=== PATIENT | male | born 2000 | race Caucasian/White ===

== ENCOUNTER 2021-10-17 16:13 | Emergency (ER) | payer OTHER ==
[~2021-10-17] VITALS: Ht 185.4 cm; Wt 84.1 kg
[2021-10-17] MEDS ORDERED: morphine 4 MG/ML inj SYRINge IV ONE ×2 (17:55→20:05)
[2021-10-17] MEDS ORDERED: normal saline 1000ml 1,000 ML IV ONE (17:55)
[2021-10-17] MEDS ORDERED: propofol 10mg/ml 20ml vial IV ONE (17:55)
[2021-10-17 18:24] LABS: BASOPHILS % (AUTO) 0.3 % (0-1); EOSINOPHILS % (AUTO) 0.1 % (0-6); HEMATOCRIT 40.5 % (42.0-52.0); HEMOGLOBIN 13.7 g/dl (14.0-17.9); LYMPHOCYTES # (AUTO) 1.7 X10'3 (1.1-4.8); LYMPHOCYTES % (AUTO) 12.9 % (21-51); MEAN CORPUSCULAR HEMOGLOBIN 28.1 PG (27.0-31.0); MEAN CORPUSCULAR HGB CONC 33.8 g/dL (33.0-36.5); MEAN PLATELET VOLUME 8.2 FL (7.4-10.4); MONOCYTES # (AUTO) 0.6 X10'3 (0-0.9); MONOCYTES % (AUTO) 4.6 % (2-12); NEUTROPHILS # (AUTO) 10.8 X10'3 (1.8-7.7); NEUTROPHILS % (AUTO) 82.1 % (42-75); PLATELET COUNT 193 X10'3 (140-440); RED BLOOD COUNT 4.88 X10'6 (4.70-6.10); RED CELL DISTRIBUTION WIDTH 13.4 % (11.5-14.5); WHITE BLOOD COUNT 13.1 X10'3 (4.5-11.0)
[2021-10-17 18:29] LABS: ALANINE AMINOTRANSFERASE 22 U/L (12-78); ALBUMIN 4.7 G/DL (3.4-5.0); ALBUMIN/GLOBULIN RATIO 1.8 (1.1-1.5); ALKALINE PHOSPHATASE 72 IU/L (46-116); ANION GAP 11 (8-16); ASPARTATE AMINO TRANSFERASE 26 U/L (10-37); BILIRUBIN,TOTAL 0.7 MG/DL (0.1-1.0); BLOOD UREA NITROGEN 26 MG/DL (7-18); CALCIUM 8.7 MG/DL (8.5-10.1); CHLORIDE 105 MMOL/L (99-107); CREATININE 0.84 MG/DL (0.60-1.10); GLUCOSE 106 MG/DL (70-104); POTASSIUM 3.8 MMOL/L (3.5-5.1); SODIUM 140 MMOL/L (135-145); TOTAL CARBON DIOXIDE 23.6 MMOL/L (24-32); TOTAL PROTEIN 7.3 G/DL (6.4-8.2); eGFR > 90 ML/MIN
--- NOTE | 2021-10-17 19:58 | NUR ---
Diprivan IV doses given during Moderated Sedation: @[address] Dick @[address] Dick @[address] Dick @[address] Dick.
[2021-10-17] MEDS ORDERED: NAPR-56 PO (20:16)
[2021-10-17] MEDS ORDERED: HYDR-3965 PO (20:16)
[2021-10-17 20:32] VITALS: BP 138/89
--- NOTE | 2021-10-17 20:39 | NUR ---
Pt is awake and alert. Denies pain.
== END 2021-10-17 21:39 | disposition home or self-care (01) ==
LOC: ER 16:14
DX: S53.025A Posterior dislocation of left radial head, initial encounter (principal); S62.636A Displaced fracture of distal phalanx of right little finger, initial encounter for closed fracture; F12.90 Cannabis use, unspecified, uncomplicated; Z72.89 Other problems related to lifestyle; Z79.899 Other long term (current) drug therapy; W19.XXXA Unspecified fall, initial encounter; Y93.89 Activity, other specified; Y92.89 Other specified places as the place of occurrence of the external cause; Y99.8 Other external cause status
CPT/HCPCS: 24605; 29130; 36415; 73070; 73080; 73140; 80053; 85025; 94799; 96361; 96374; 99291; J2270; J2704; J7030; 94760; 99285